=== PATIENT | male | born 1985 | race Caucasian/White ===

== ENCOUNTER 2019-05-04 08:21 | Day surgery (SDC) | payer OTHER ==
[2019-05-04] VITALS (13 sets, daily range): BP systolic 116–165; BP diastolic 59–84; PULSE 57–106; RESP 16–29; Ht 170.2 cm; Wt 128.0 kg
[~2019-05-04] VITALS: Ht 170.2 cm; Wt 128.0 kg
--- NOTE | 2019-05-04 07:20 | HPN ---
Date/Time of Note Date/Time of Note DATE: 05/04/19 TIME: 07:19 Interval H&P Admission Note Pt. seen H&P reviewed: No system changes ANTHONY GARCIA MD May 04, 2019 07:20
[~2019-05-04 08:21] MED LIST: HYDR-4011 PO; IBUP800T48 PO; LISI10TA2 PO
--- NOTE | 2019-05-04 09:21 | PREAC ---
Date/Time of Note Date/Time of Note DATE: 05/04/19 TIME: : Anesthesia Eval and Record Evaluation Time Pre-Procedure Interview DATE: 05/04/19 TIME: :19 Age 33 Sex male NPO: 8 hrs Preoperative diagnosis riht knee ACL TEAR Planned procedure right knee arthroscopy ACL reconstruction Past Medical History Past Medical History: Includes Cardio: HTN Surgery & Anesthesia Issues No known issue Meds Anticoagulation: No Beta Andre within 24 hr: No Reason Beta Andre not given: Pt. not on B-Andre Reported Medications Ibuprofen* (Motrin*) 800 Mg Tab, 800 MG PO Q6H PRN for PAIN, TAB 05/04/19 Hydrocodone/Acetaminophen ([place] 5-325 Tablet) 1 Each Tablet, 1 TAB PO Q4 PRN for PAIN LEVEL 4-7, TAB 05/04/19 Lisinopril* (Lisinopril*) 10 Mg Tablet, 10 MG PO DAILY, #30 TAB 05/04/19 Meds reviewed: Yes Allergies Coded Allergies: No Known Allergy (Unverified , 05/04/19) Allergies Reviewed: Yes Labs/Studies Labs Reviewed: Reviewed by anesthesiologist test: N/A Pre-procedure Exam Airway: Adequate mouth opening Mallampati: Mallampati I Teeth: Normal Lung: Normal Heart: Normal ASA Physical Status ASA physical status: 2 Emergency: None Planned Anesthetic General/MAC: LMA Nerve block: Femoral (right) Planned Pain Management Single shot nerve block, Parenteral pain med Pre-operative Attestations Prior to commencing anesthesia and surgery, the patient was re-evaluated, there was verification of: *The patient's identity *The results of appropriate recent lab work and preoperative vital signs *The above evaluation not changing prior to induction *Anesthetic plan, risk benefits, alternative and complications discussed with patient/family; questions answered; patient/family understands, accepts and wishes to proceed. AIRAM ONTIVEROS MD May 04, 2019 09:21
[2019-05-04] MEDS ORDERED: FENTAnyl 50 MCG/ML VIAL ONE ×3 (09:22→12:26)
[2019-05-04] MEDS ORDERED: ROPIVACAINE 0.5 % 30 ML VIAL ONE (09:22)
[2019-05-04] MEDS ORDERED: MIDAZOLAM 1 MG/ML 2 ML INJ ONE (09:22)
[2019-05-04] MEDS ORDERED: POLYMYXIN/BACITRACIN 1L IRRIG ONE (10:25)
[2019-05-04] MEDS ORDERED: PROPOFOL 20 ML ONE ×2 (10:34→11:49)
[2019-05-04] MEDS ORDERED: HYDROmorphONE 2 MG/ML SYG ONE (10:35)
[2019-05-04] MEDS ORDERED: ONDANSETRON 4 MG INJ ONE (10:39)
[2019-05-04] MEDS ORDERED: METOCLOPRAMIDE 10 MG INJ ONE (10:39)
[2019-05-04] MEDS ORDERED: CEFAZOLIN 1 GM INJ ONE (10:43)
[2019-05-04] MEDS ORDERED: EPHEDrine 25 MG/5 ML SYG ONE (10:51)
[2019-05-04] MEDS ORDERED: hydrALAzine 20 MG INJ ONE (11:28)
[2019-05-04] MEDS ORDERED: MEPERIDINE 100 MG INJ ONE (11:51)
[2019-05-04] MEDS ORDERED: KETOROLAC 30 MG INJ ONE (12:34)
[2019-05-04] MEDS ORDERED: DIPHENHYDRAMINE 50 MG INJ IV PRN (13:00)
[2019-05-04] MEDS ORDERED: HYDROmorphONE 1 MG/5 ML IV SYRINGE IV PRN ×2 (13:00)
[2019-05-04] MEDS ORDERED: ONDANSETRON 4 MG INJ IV PRN (13:00)
[2019-05-04] MEDS ORDERED: EPHEDrine 25 MG/5 ML SYG IV PRN (13:00)
[2019-05-04] MEDS ORDERED: OXYCODONE/ACETAMINOPHEN (5/325) TAB PO PRN ×2 (13:00)
[2019-05-04] MEDS ORDERED: MEPERIDINE 25 MG INJ IV PRN (13:00)
[2019-05-04] MEDS ORDERED: morphine 2 MG INJ IV PRN ×4 (13:00→13:30)
[2019-05-04] MEDS ORDERED: FENTAnyl 50 MCG/ML VIAL IV PRN ×3 (13:00)
[2019-05-04] MEDS: HYDROmorphONE 1 MG/5 ML IV SYRINGE IV PRN ×2 (13:12→13:20)
--- NOTE | 2019-05-04 13:26 | OPR ---
Date/Time of Note Date/Time of Note DATE: 05/04/19 TIME: 13:26 Operative Report Procedure Date: May 04, 2019 Preoperative Diagnosis Right knee ACL tear Right knee medial meniscal tear Postoperative Diagnosis Right knee ACL tear Right knee medial meniscal tear Operation/Procedure Performed Right knee arthroscopy with medial meniscal repair Right knee arthroscopy with ACL reconstruction with Tibialis Anterior Allograft Surgeon Anthony Garcia MD D[employer] Tender Agustin Kapoor DO Second Diver'S Tender: KURTIS LISA Anesthesia Type: general, other (fascia iliacus) Anesthesiologist: AIRAM ONTIVEROS MD Tourniquet Time: 16 min at 250 mm Hg Estimated Blood Loss: 0 - 10 ml's Transfusion none Specimen none Grafts/Implants Mitek adjustable loop button Mitek bioIntrafix 8-10 Complications none Pt Condition Post Procedure: stable Disposition: PACU Indications Indications The patient is a 33 year-old male with a prolonged history of Right knee giving way after injury at work. He has had continued episodes of instability with catching and clicking over the past several months. The patient has restored their range of motion and is now brought to the operating room for ACL reconstruction, possible partial medial and lateral meniscectomy versus medial and lateral meniscal repair, chondroplasty and debridement. Risk Note: The risks, benefits, and alternatives of surgery were discussed with the patient. The risks included but were not limited to infection, bleeding, damage to vessels and nerves, loss of motion, continued pain, re-tear of the meniscus, deep venous thrombosis, and complications due to anesthesia including nerve injury, myocardial infarction, stroke, , etc. The patient stated understanding of the nature of the surgical procedure and gave written and verbal consent to proceed Procedure Description Patient was met in the preoperative holding area and the correct operative extremity was confirmed with both patient and consent. Patient was given preoperative fascial iliacus block was placed. Patient was brought to the operative theater and placed supine on the operative table. Patient was given general anesthesia and preoperative antibiotics. The right lower extremity was examined under anesthesia. Range of motion was 0 degrees of extension to 135 degrees of flexion. There was no varus or valgus or posterolateral instability. He had no instability to varus or valgus stress at 0 or 30 degrees. He had a 2+ Deo and drawer with a positive pivot shift The right lower extremity was then prepped and draped in the usual fashion. A tourniquet was placed proximally on the thigh over a bias stockinette. A standard anterolateral parapatellar stab wound was created. The knee joint was entered with a blunt-tipped obturator, followed by the 30-degree video arthroscope. An anteromedial portal was established under arthroscopic control. A routine arthroscopic survey was performed. The suprapatellar pouch was unremarkable. The undersurface of the patella was well-preserved. The patella appeared to track centrally within the trochlear groove. There was grade I chondromalacia under the lateral patella facet. The trochlea no chondromalacia. The medial and lateral gutters were inspected and there was no loose body seen. There was no hypertrophied plica. The popliteal hiatus was entered and was unremarkable. The lateral compartment was entered. The lateral femoral condyle exhibited grade 1 chondromalacia and the lateral tibial plateau showed no chondromalacia. There was no chondromalacia adjacent to the notch. There was no chondromalacia along the central aspect of the weight bearing lateral tibial plateau. The lateral meniscus was the probed and found to be stable with no tear The intercondylar notch was visualized. The anterior cruciate ligament was torn from its femoral origin. Posteromedially there was no loose body seen. The posterior cruciate ligament was visualized and appeared intact although slightly strained. The medial compartment was entered. The meniscus was then probed and found to have a posterior horn tear that was a horizontal tear of the posterior horn extending to a peripheral tear to the mid body. The peripheral tear was debrided doing a partial meniscectomy the mid body and posterior horn with both a biter and a shaver and the posterior horn was then rasped and then repaired with a 2 Mitek truspan. The meniscus was then reprobed and found to be stable. Attention was turned to reconstruction of the anterior cruciate ligament. Following exsanguination with an Esmarch bandage the tourniquet was inflated to 250 mm of mercury. Using a motorized shaver a limited notchplasty was performed, exposing the lateral wall and roof of the notch, identifying the [id number] position. The stump of the anterior cruciate ligament was debrided. A Vector guide was placed intra-articularly between the tibial spines in line with the anterior horn of the lateral meniscus. A Ponce wire was then inserted into the knee through a 2 cm incision made over the proximal medial tibia. The incision was deepened through the subcutaneous tissue with subperiosteal dissection achieved. Bleeding points were coagulated with the Bovie electrocautery. The tibialis anterior allograft was prepped to create a size 10 graft on both the femoral and tibial side. Tibial drilling was then carried out first with a 6.5 mm followed by a 10 mm cylindrical reamer with the guide set at 55 degrees. Via an accessory medial portal, the Beath pin was drilled out the femoral cortex and skin with the knee in hyperflexion. The femoral tunnel was then created, with a spade tip guidewire, Depth-gauging confirmed a tunnel length of 30 mm. Then reaming proceeded, with a 9.5 mm drill to a depth of 25 mm. A adjustable rigid loop Mitek button was selected. The graft was inserted intra-articularly and the Mitek button was deployed. The graft was cycled for 20 cycles with 25 pounds of force to pre-load the graft. Tibial fixation was carried out using a 8-10 Bio-IntraFix in 10 degrees of flexion with a posterior drawer. At the completion of surgery the patient had a firm stable Deo. There was a negative pivot shift. The patient had a 0 firm Deo and a negative pivot shift. There was no evidence for any roof or lateral wall impingement. The knee was irrigated with two liters of lactated Ringer's solution. Excess fluid was drained. The tibial wounds were then copiously irrigated with bacitracin solution and closed in layers with #0, #2-0 and #3-0 Vicryl. The skin was reapproximated with 3-0 then #4-0 Monocryl. The knee was injected with 20 cc of 0.5% plain ropivacaine. A dry sterile dressing was applied, followed by a bulky bandage and bruce wrap, insuring no contact with the skin. A postoper ative TROM brace was applied locked in full extension. The patient was awakened in the Operating Room and transported to the Recovery Room in satisfactory condition. The patient appeared to tolerate the procedure well. At the completion of surgery the patient had soft compartments, palpable pulses, and brisk capillary refill. There were no complications noted. Patient begin partial weightbearing this coming couple days. With the brace locked in extension he will begin aspirin 81 mg Po qday starting tomorrow. D[employer] Tender surgeon: An exceptional children teacher assistant orthopedic surgeon was needed for this case to assist with positioning of the limb during repair of the injury as well as assisting in fixation of the ACL and meniscus while holding the arthroscope. Without a qualified orthopedic surgeon in this case the case would be significantly more complex and longer. Modifier 22 Note: Case was extensively longer and more complex due to the nature and type of injury. Dissection and treatment of the pathology was made more complex due to the BMI of 44.2 which made the case approximately 60 minutes longer in length due to different type of dissection and control of the limb during the case. Due to the complex nature of this the surgery should be awarded a modifier 22. ANTHONY GARCIA MD May 04, 2019 13:26
[2019-05-04] MEDS ORDERED: KETOROLAC 30 MG INJ IV SCH (13:30)
--- NOTE | 2019-05-05 08:22 | PAC ---
Date/Time of Note Date/Time of Note DATE: 05/05/19 TIME: 08:22 Post-Anesthesia Notes Post-Anesthesia Note Last documented vital signs Vital Signs Date Temp Pulse Resp B/P (MAP) Pulse Ox O2 O2 Flow FiO2 Time Delivery Rate 05/04/19 97.5 91 16 137/83 94 Room Air 14:11 (101) 05/04/19 3.0 13:30 Activity: WNL Respiratory function: WNL Cardiovascular function: WNL Mental status: Baseline Pain reasonably controlled: Yes Hydration appropriate: Yes Nausea/Vomiting absent: No AIRAM ONTIVEROS MD May 05, 2019 08:22
== END 2019-05-04 15:00 | disposition home or self-care (01) ==
LOC: SDS 08:21
PROVIDERS: ATTEND Orthopaedic Surgery
DX: S83.511D Sprain of anterior cruciate ligament of right knee, subsequent encounter (principal); S83.241D Other tear of medial meniscus, current injury, right knee, subsequent encounter; X58.XXXD Exposure to other specified factors, subsequent encounter
CPT/HCPCS: 29881; 29888; 82306; C1713; C1762; J0360; J0690; J1170; J1885; J2175; J2250; J2405; J2765; J2795; J3010